=== PATIENT | male | born 1950 | race Caucasian/White ===

== ENCOUNTER 2021-02-13 19:00 | Emergency (ER) | payer MEDICARE, SELFPAY ==
--- NOTE | ~2021-02-13 | XR_ITS ---
EXAMINATION: XR SHOULDER, RIGHT. XR ELBOW, RIGHT. XR HIP, RIGHT. CLINICAL INFORMATION: Fall with pain COMPARISON: None TECHNIQUE: 3 views of the right shoulder. AP and lateral views of the right elbow. AP pelvis with AP and frog-lateral views of the right hip. FINDINGS: Right shoulder: There is a transverse fracture of the surgical neck. Probable anterior subluxation of the humeral shaft. The humeral head retains its alignment with the glenoid fossa. Right elbow: Limited evaluation given the oblique positioning of the lateral view. No obvious fracture or dislocation. Degenerative findings are noted. Right hip/pelvis: No acute fracture or dislocation. Moderate right hip osteoarthritis with joint space narrowing and small osteophytes of the acetabular rim. Prominent degenerative changes of the visualized lumbar spine are noted. XR/XR shoulder RT min 2V IMPRESSION: Right shoulder: Slightly impacted and likely anteriorly displaced surgical neck fracture. Right elbow: Technically limited with no obvious acute abnormality. Right hip/pelvis: No acute fracture or dislocation. Moderate osteoarthritis.
--- NOTE | ~2021-02-13 | XR_ITS ---
EXAMINATION: XR SHOULDER, RIGHT. XR ELBOW, RIGHT. XR HIP, RIGHT. CLINICAL INFORMATION: Fall with pain COMPARISON: None TECHNIQUE: 3 views of the right shoulder. AP and lateral views of the right elbow. AP pelvis with AP and frog-lateral views of the right hip. FINDINGS: Right shoulder: There is a transverse fracture of the surgical neck. Probable anterior subluxation of the humeral shaft. The humeral head retains its alignment with the glenoid fossa. Right elbow: Limited evaluation given the oblique positioning of the lateral view. No obvious fracture or dislocation. Degenerative findings are noted. Right hip/pelvis: No acute fracture or dislocation. Moderate right hip osteoarthritis with joint space narrowing and small osteophytes of the acetabular rim. Prominent degenerative changes of the visualized lumbar spine are noted. XR/XR elbow RT min 3V IMPRESSION: Right shoulder: Slightly impacted and likely anteriorly displaced surgical neck fracture. Right elbow: Technically limited with no obvious acute abnormality. Right hip/pelvis: No acute fracture or dislocation. Moderate osteoarthritis.
--- NOTE | ~2021-02-13 | XR_ITS ---
EXAMINATION: XR SHOULDER, RIGHT. XR ELBOW, RIGHT. XR HIP, RIGHT. CLINICAL INFORMATION: Fall with pain COMPARISON: None TECHNIQUE: 3 views of the right shoulder. AP and lateral views of the right elbow. AP pelvis with AP and frog-lateral views of the right hip. FINDINGS: Right shoulder: There is a transverse fracture of the surgical neck. Probable anterior subluxation of the humeral shaft. The humeral head retains its alignment with the glenoid fossa. Right elbow: Limited evaluation given the oblique positioning of the lateral view. No obvious fracture or dislocation. Degenerative findings are noted. Right hip/pelvis: No acute fracture or dislocation. Moderate right hip osteoarthritis with joint space narrowing and small osteophytes of the acetabular rim. Prominent degenerative changes of the visualized lumbar spine are noted. XR/XR hip RT w [id number] IMPRESSION: Right shoulder: Slightly impacted and likely anteriorly displaced surgical neck fracture. Right elbow: Technically limited with no obvious acute abnormality. Right hip/pelvis: No acute fracture or dislocation. Moderate osteoarthritis.
[2021-02-13 19:11] VITALS: BP 116/65; BP 123/76; PULSE 66; PULSE 72; RESP 16; TEMP 36.6; O2SAT 96; O2SAT 97; BMI 26.7
--- NOTE | 2021-02-13 19:37 | ED_ITS ---
HPI - Fall General Chief Complaint: Fall Stated Complaint: FALL Time Seen by Provider: 02/13/21 19:20 Source: patient Mode of arrival: EMS Limitations: no limitations History of Present Illness HPI Narrative: Patient comes to emergency room after sustaining a fall. Patient states that he was watching a baseball game, he was on top of the hell, patient was trying to catch a cooler from rolling down the hill. However, patient rolled down the hill. Patient states that he did not hit his head, denies headache or neck pain. Patient states his shoulder, elbow, and hip hurt all on the right side. Patient was brought in by EMS. Patient refused to wear as neck collar. At this time, patient states that the pain is worse on his elbow. Patient denies loss of consciousness, patient states he takes baby aspirin. MD complaint: fall Related Data Previous Rx's Medication Instructions Recorded oxycodone 5 mg PO TID PRN #14 tab 02/13/21 Allergies Allergy/AdvReac Type Severity Reaction Status Date / Time No Known Allergies Allergy Verified 02/13/21 19:18 Review of Systems Review of Systems: Constitutional : No Weight loss, No Fever, No Chills, No Night Sweats, No Fatigue, No Malaise ENT/Mouth : No Hearing loss, No Ear Pain, No Nasal Congestion, No Sinus Pain, No Hoarseness, No sore throat, No Rhinorrhea, No Swallowing Difficulty Eyes: No Eye Pain, No Swelling, No Redness, No Foreign Body, No Discharge, No Vision Changes Cardiovascular : No Chest Pain, No SOB, No Dyspnea on Exertion, No Orthopnea, No Edema, No Palpitations Respiratory : No Cough, No Sputum, No Wheezing, No Smoke Exposure, No Dyspnea Gastrointestinal : No Nausea, No Vomiting, No Diarrhea, No Constipation, No abdominal Pain, No Hematochezia, No Melena Genitourinary : no irregular bleeding, No Dysuria, No Urinary Frequency, No Hematuria, No Urinary Incontinence, No Urgency, No Flank Pain, No Urinary Flow Changes, No Hesitancy Musculoskeletal : Complaining of right-sided shoulder, elbow and hip pain, No Myalgias, No Joint Swelling Skin : Skin abrasions over the right knee Neuro : No Weakness, No Numbness, No Paresthesias, No Loss of Consciousness, No Dizziness, No Headache Psych : No Anxiety/Panic, No Depression, No SI/HI/AH/VH, No Social Issues, Heme/Lymph: No Bruising, No Bleeding,No Lymphadenopathy Endocrine : No Polyuria, No Polydipsia, No Temperature Intolerance [facility] Past Medical History Medical History Diabetes 1.5, managed as type 2 H/O acute pancreatitis Social History Social History Advance Directives: No Advance Directives Information Provided: No Physical Exam Vital Signs: Vital Signs: Last Vital Signs Temp 97.9 F 02/13/21 19:11 Pulse 66 02/13/21 19:11 Resp 16 02/13/21 19:11 BP 116/65 02/13/21 19:11 Pulse Ox 96 02/13/21 19:11 Body Mass Index 26.7 Appearance: Alert. Oriented X3. No acute distress. Eyes: Pupils equal, round and reactive to light. ENT: Pharynx normal. Neck: Normal inspection. Neck supple. No lymph nodes noted. No crepitus, no palpable step-offs, no C-spine tenderness, normal range of motion CVS: Normal heart rate and rhythm. Pulses normal. Normal S1 and S2 Respiratory: No respiratory distress. Breath sounds normal. No Wheezing. No rales Abdomen: Soft and nontender. No rigidity. No distention. good BS x4 Skin: Skin warm and dry. 5 cm x 5 cm superficial skin abrasion above the right knee, bleeding controlled Extremities: Right arm in a temporary sling, pain to palpation over the acromioclavicular joint and right elbow, mild discomfort on palpation over right hip, patient is able to flex and extend right knee with no pain, full range of motion on the left side in upper and lower extremities and hip. Neuro: Oriented X 3. No motor deficit. No sensory deficit. Moving all extermities. No slurred speech. Course Course Course Narrative: I discussed the x-ray with the patient, patient does have a right humeral fracture. Patient was provided with a sling, pain medications, will be discharged home and have him follow-up with Orthopedics. MDM - Fall Imaging Data Right-sided shoulder, elbow, hip x-rays: Radiologist's impression: FINDINGS: Right shoulder: There is a transverse fracture of the surgical neck. Probable anterior subluxation of the humeral shaft. The humeral head retains its alignment with the glenoid fossa. Right elbow: Limited evaluation given the oblique positioning of the lateral view. No obvious fracture or dislocation. Degenerative findings are noted. Right hip/pelvis: No acute fracture or dislocation. Moderate right hip osteoarthritis with joint space narrowing and small osteophytes of the acetabular rim. Prominent degenerative changes of the visualized lumbar spine are noted. XR/XR elbow RT min 3V IMPRESSION: Right shoulder: Slightly impacted and likely anteriorly displaced surgical neck fracture. Right elbow: Technically limited with no obvious acute abnormality. Right hip/pelvis: No acute fracture or dislocation. Moderate osteoarthritis. Discharge Plan Discharge Clinical Impression: Abrasion Fracture of neck of right humerus Qualifiers: Encounter type: initial encounter Fracture type: closed Qualified Code(s): S42.211A - Unspecified displaced fracture of surgical neck of right humerus, initial encounter for closed fracture Patient Disposition: Home, Self-Care Instructions: Arm Fracture in Adults (ED) Additional Instructions: Please call Orthopedics in the morning to schedule an appointment. Please follow-up with your primary care physician tomorrow. If you have any worsening or new symptoms, please return to the emergency room or call 911 Prescriptions: New oxycodone 5 mg tablet 5 mg PO TID PRN (Reason: pain) Qty: 14 RF: 0 Referrals: Sandra Pritchard PA-C [Physician [employer]] - 2 days
[2021-02-13] MEDS: oxyCODONE HCl Immed Release 5 MG TABLET PO ×2 (19:38→21:16)
[2021-02-13 22:31] VITALS: BP 121/66; PULSE 72; RESP 16; TEMP 36.6; O2SAT 97
== END 2021-02-13 22:33 | disposition home or self-care (01) ==
PROVIDERS: Emergency Provider Emergency Medicine
DX: S42.211A Unspecified displaced fracture of surgical neck of right humerus, initial encounter for closed fracture (principal); S80.211A Abrasion, right knee, initial encounter; E13.9 Other specified diabetes mellitus without complications; W17.81XA Fall down embankment (hill), initial encounter; Y93.9 Activity, unspecified; Y92.89 Other specified places as the place of occurrence of the external cause; Y99.9 Unspecified external cause status
CPT/HCPCS: 73030; 73080; 73502; 99283

== ENCOUNTER → 2021-02-15 13:14 | Outpatient (BNVA) | payer MEDICARE, SELFPAY | PROVIDERS: PCP Family Medicine; Visit Provider Physician Assistant | DX: S42.211A Unspecified displaced fracture of surgical neck of right humerus, initial encounter for closed fracture (principal) | CPT/HCPCS: 99202 ==

== ENCOUNTER 2021-03-15 11:37 | Outpatient (REF) | payer MEDICARE, SELFPAY ==
--- NOTE | ~2021-03-15 | XR_ITS ---
EXAMINATION: XR SHOULDER, RIGHT CLINICAL INFORMATION: Right humerus fracture COMPARISON: Previous x-ray 02/13/2021 TECHNIQUE: Two views of the right shoulder. FINDINGS: There is a comminuted impacted right surgical neck fracture. Alignment appears unchanged. Fracture line is still seen. There is increased bony callus formation suggestive of evidence of healing. Glenohumeral alignment is normal. There is arthritis at the acromioclavicular joint. Soft tissues are unremarkable. XR/XR shoulder RT min 2V IMPRESSION: Healing right surgical neck fracture.
== END 2021-03-15 11:38 | disposition home or self-care (01) ==
LOC: HO.HOSX 11:37
PROVIDERS: Visit Provider Physician Assistant
DX: S42.211A Unspecified displaced fracture of surgical neck of right humerus, initial encounter for closed fracture (principal)
CPT/HCPCS: 73030; 99212

== ENCOUNTER 2021-04-12 07:53 | Outpatient (REF) | payer MEDICARE, SELFPAY ==
--- NOTE | ~2021-04-12 | XR_ITS ---
EXAMINATION: XR SHOULDER, RIGHT CLINICAL INFORMATION: Fracture follow-up. COMPARISON: Most recent right shoulder radiographs dated 03/15/2021. TECHNIQUE: AP and scapular Y views of the right shoulder. FINDINGS: Proximal humeral fracture in unchanged anatomic alignment with interval increase in new bone/callus formation. Acromioclavicular and glenohumeral marginal osteophytes, unchanged. No osseous erosion. XR/XR shoulder RT min 2V IMPRESSION: Proximal humeral fracture in unchanged anatomic alignment with increased new bone/callus formation.
== END 2021-04-12 07:54 | disposition home or self-care (01) ==
LOC: HO.HOSX 07:53
PROVIDERS: Visit Provider Physician Assistant
DX: S42.211D Unspecified displaced fracture of surgical neck of right humerus, subsequent encounter for fracture with routine healing (principal)
CPT/HCPCS: 73030; 99212

== ENCOUNTER 2021-05-24 13:59 | Outpatient (REF) | payer MEDICARE, SELFPAY ==
--- NOTE | ~2021-05-24 | XR_ITS ---
EXAMINATION: XR SHOULDER, RIGHT CLINICAL INFORMATION: Pain. COMPARISON: Prior radiographs as remote as 02/13/2021. TECHNIQUE: Grashey and scapula Y views of the right shoulder are submitted. FINDINGS: Bony alignment and mineralization are normal. The glenohumeral joint is intact. The acromioclavicular and coracoclavicular intervals are normal. A small distal acromial undersurface osteophyte is seen. There is stable alignment of an impacted right humeral neck fracture, with only a faint residual fracture line now noted. There is good periosteal callus formation. The right femoral head remains smooth. No soft tissue gas or foreign body is seen. There is no right pneumothorax. XR/XR shoulder RT min 2V IMPRESSION: There is further interim healing of a previously noted right humeral neck fracture, which remains in stable alignment. The fracture line is now faint, and there is good periosteal callus formation.
== END 2021-05-24 14:00 | disposition home or self-care (01) ==
LOC: HO.HOSX 13:59
PROVIDERS: Visit Provider Physician Assistant
DX: S42.211D Unspecified displaced fracture of surgical neck of right humerus, subsequent encounter for fracture with routine healing (principal)
CPT/HCPCS: 73030; 99212